=== PATIENT | female | born 1935 | race Caucasian/White ===

== ENCOUNTER 2017-10-09 20:08 | Inpatient (IN) | payer MEDICARE, OTHER ==
[~2017-10-09] VITALS: Ht 149.9 cm; Wt 55.3 kg
[~2017-10-09 20:08] MED LIST: CALAN SR240 MG PO; CARDURA4 MG PO; CETIRIZINE HCL5 MG PO; FLAGYL 500500 MG/100 PO; FLAGYL500 MG PO; IMODIUM2 MG PO; NAPROSYN500 MG PO; NORCO 5/325 TAB1 TA1 PO; PEPCID40 MG PO; PREMARIN0.625 MG PO; QUESTRAN PACK4 G/PKT PO; RESTORIL15 MG PO; TRANXENE T-TA3.75 MG PO
[2017-10-09 20:26] LABS: BASOPHILS 0.2 % (0-2); EOSINOPHILS 0 % (0-7); HEMATOCRIT 34.5 % (36.0-48.0); HEMOGLOBIN 11.3 g/dL (12-16); IMMATURE GRANULOCYTES 0.2 % (0-5); LYMPHOCYTES 8.6 % (15-50); MCH 33.5 pg (26.0-34.0); MCHC 32.8 g/dL (31.0-37.0); MCV 102.4 fL (80.0-100.0); MEAN PLATELET VOLUME 9.3 fL (7.4-10.4); MONOCYTES 11.3 % (2-11); NEUTROPHILS 79.7 % (40-80); RBC 3.37 10x6/uL (4.00-5.40); RDW 12.3 % (11.5-14.5); WBC 9.5 10x3/uL (4.8-10.8)
[2017-10-09 20:37] LABS: PLATELET COUNT 198 10x3/uL (130-400)
[2017-10-09 20:40] LABS: ALBUMIN 3.2 g/dL (3.4-5.0); ANION GAP 19.1 mmol/L (8-16); BILIRUBIN - TOTAL 0.19 mg/dL (0.2-1.3); CARBON DIOXIDE 22.5 mmol/L (21.0-32.0); CREATININE - SERUM 1.3 mg/dL (0.6-1.3); POTASSIUM - SERUM 4.6 mmol/L (3.5-5.1); PROTEIN - SERUM 7.6 g/dL (6.4-8.2)
[2017-10-09 21:42] LABS: APPEARANCE TURBID (CLEAR); BILIRUBIN NEGATIVE (NEGATIVE); COLOR YELLOW (YELLOW); GLUCOSE NEGATIVE (NEGATIVE); KETONE SMALL mg/dL (NEGATIVE); NITRITE NEGATIVE (NEGATIVE); PROTEIN 1+ mg/dL (NEGATIVE); UROBILINOGEN NORMAL (NORMAL)
[2017-10-09 21:43] LABS: BACTERIA MANY /hpf (NONE SEEN); EPITHELIAL CELLS 0-5 /hpf (0-5); RED CELLS - URINE 0-5 /hpf (0-5); WHITE CELLS - URINE >50 /hpf (0-5)
[2017-10-10] VITALS (7 sets, daily range): BP systolic 137–171; BP diastolic 60–89; Ht 149.9 cm; Wt 55.3 kg
[2017-10-10] MEDS ORDERED: NASACORT10.8 ML NASAL (01:38)
[2017-10-10] MEDS ORDERED: ANASTROZOLE1 MG PO (01:39)
[2017-10-10] MEDS ORDERED: NEURONTIN 300300 MG PO (01:39)
[2017-10-10] MEDS ORDERED: REMERON15 MG PO (01:39)
[2017-10-10] MEDS ORDERED: ZITHROMAX250 MG PO (01:40)
--- NOTE | 2017-10-10 08:00 | NUR ---
INTRODUCED MYSELF TO PT PRIMARY RN FOR TODAYS SHIFT. SHIFT ASSESSMENT COMPLETED PT CURRENTLY WEARING BIPAP BUT IS RESPONSIVE. NO CURRENT NEEDS, WILL OBTAIN ORDERS IF BIPAP NEEDED OR NOT. BED IN LOWEST, SIDE RAILS X2 AND BUILT IN BED ALARM ON.
--- NOTE | 2017-10-10 09:06 | NUR ---
SPOKE WITH DAUGHTER GRANT AND PT CURRENTLY FULL CODE.
--- NOTE | 2017-10-10 09:30 | NUR ---
MORNING MEDICATIONS HELD R/T UNSURE ABOUT PT SWALLOWING SAFELY. LUNGS ARE VERY CRACKLING/CONGESTED THROUGHOUT ALL LOBES. PT IS ALERT AND ORIENTED BUT VERY QUIET UNLESS ASKED QUESTIONS. REMOVED BIPAP AND PLACED PT ON NC@4L WILL CONTINUE TO WATCH O2 AND REPLACE BIPAP IF NEEDED. CURRENT PULS OX IS 99% PT HAS MADISON DRAINING TO GRAVITY OFF R.SIDE OF BED YELLOW CLOUDY IN COLOR. INITIATED PTS IVPB INFUSING VIA R.HAND PIV WITH DSRG CDI AND SWAB DISTRIBUTION OPERATIONS MANAGER IN USE. PTS MOUTH IS DRY SO I PROVIDED ORAL CARE, WAITING ON SWALLOW EVAL TO SEE IF SHE CAN SAFELY SWALLOW OR NOT. PT VERBALIZED UNDERSTANDING AND DENIES ANY CURRENT PAIN OR NEEDS. WILL CPOC.
--- NOTE | 2017-10-10 14:22 | NUR ---
AT BEDSIDE ASSESSING PT. PT RESPONDING AND ANSWERING QUESTIONS WITHOUT ANY DEFICITS NOTED. CALLED SPEECH AND THEY WILL COME DO SWALLOW EVAL SHORTLY. NO CURRENT NEEDS AT THIS TIME. CL IN REACH, BED IN LOWEST, SIDE RAILS X2 AND BUILT IN BED ALARM ON. WILL CPOC.
--- NOTE | 2017-10-10 15:19 | NUR ---
SCDS APPLIED TO PT BILAT AND TEACHING PROVIDED. PT RESTING QUIETLY IN BED AND DENIES ANY CURRENT PAIN OR NEEDS. CL IN REACH. WILL CPOC.
--- NOTE | 2017-10-10 17:33 | NUR ---
PT BECOMING ANXIOUS AND TRYING TO CLIMB OOB AND STATING "I HAVE TO GO, IM NOT DYING" DAUGHTER AT BEDSIDE AND ATTEMPTING TO CALM PT DOWN. PAGED AND HE STATES WE CAN RESTART HER HOME MED FOR ANXIETY. ASSISTED PT BACK IN BED AND REPOSITIONED FOR COMFORT. WILL CTM.
--- NOTE | 2017-10-10 18:44 | NUR ---
PROVIDED PT WITH ANXIETY MED AND PT IS STILL BEING VERY ANXIOUS. REFUSING TO LET GO OF CNAS HAND, PT TOLD ME TO LEAN IN TO HEAR HER BETTER AND THEN SHE PULLED MY PONYTAIL AND WOULDNT LET GO. PT BEING NONCONGRUENT WITH SITUATION SHE WILL RANDOMLY LAUGH OUT AND THEN SAY "AWH YOU GUYS ARE SO CUTE COME HERE" DAUGHTER AT BEDSIDE HOWEVER PT TOLD HER TO "JUST SHUTUP AND MIND YOUR BUSINESS" WILL PAGE AGAIN
--- NOTE | 2017-10-10 18:51 | NUR ---
ONE TIME DOSE OF HALDOL ORDERED, WILL TRY AND SEE IF IT HELPS. PT PULLED OUT HER R.ARM PIV AND BLAMED IT ON THE LIQUEFIED NATURAL GAS PLANT OPERATOR. NEW 20 GUAGE PIV INSERTED INTO L.FA X1 STICK, DRSG ADHERED TO SKIN AND SWAB CAPS IN USE. WILL CPOC.
--- NOTE | 2017-10-10 20:03 | NUR ---
PT IS RESTING IN BED WITH EYES OPEN. ALERT, BUT CONFUSED TO PLACE, TIME AND SITUATION. PT IS CONTINUOUSLY ATTEMPTING TO GET OUT OF BED, REMOVING SCD'S, ETC. SHE STATES: " I JUST HAVE TO GET UP AND GO." SHE DOES NOT FOLLOW ANY COMMANDS. PT IS CADDO. MADISON CATH IS PATENT AND DRAINING TO A GRAVITY BAG. REFUSING TO WEAR O2. SCD'S ARE ON AT THIS TIME. LEFT FOREARM SALINE LOCK NOTED. SR'S ARE UP X 3 IN BED. CALL LIGHT AND BEDSIDE TABLE ARE WITHIN EASY REACH. BED ALARM IS ON.
--- NOTE | 2017-10-10 21:57 | NUR ---
PT IS RESTING IN BED WITH EYES CLOSED. AWOKE EASILY FOR MEDS. NO SWALLOW PROBLEMS NOTED. PT DRIFTED BACK TO SLEEP QUICKLY.
--- NOTE | 2017-10-11 02:04 | NUR ---
PT RESTING QUIETLY IN BED WITH EYES CLOSED. RESPS ARE EVEN AND UNLABORED. NO ACUTE DISTRESS NOTED.
--- NOTE | 2017-10-11 02:33 | NUR ---
PT RESTING IN BED WITH EYES OPEN. PT FIDGETTY. PULLING BLANKETS OFF AND ON. ROLLING FROM ONE SIDE OF THE BED TO THE OTHER. NO ACUTE DISTRESS NOTED. PT NOT TRYING TO GET OUT OF BED. WILL MONITOR CLOSELY.
[2017-10-11 04:05] VITALS: BP 146/90
--- NOTE | 2017-10-11 04:48 | NUR ---
PT RESTING IN BED WITH EYES OPEN. DOZING ON AND OFF. NO ACUTE DISTRESS NOTED.
--- NOTE | 2017-10-11 05:30 | NUR ---
HARDWARE INSTALLER AT BEDSIDE TO OBTAIN VITALS, WILL CONTINUE WITH PLAN OF CARE. CALL LIGHT IN REACH.
[2017-10-11 06:17] LABS: BASOPHILS 0.1 % (0-2); EOSINOPHILS 0 % (0-7); HEMOGLOBIN 11.2 g/dL (12-16); IMMATURE GRANULOCYTES 0.3 % (0-5); LYMPHOCYTES 5.8 % (15-50); MCH 33.5 pg (26.0-34.0); MCHC 32.9 g/dL (31.0-37.0); MCV 101.8 fL (80.0-100.0); MEAN PLATELET VOLUME 9.5 fL (7.4-10.4); MONOCYTES 6.9 % (2-11); NEUTROPHILS 86.9 % (40-80); PLATELET COUNT 204 10x3/uL (130-400); RBC 3.34 10x6/uL (4.00-5.40); RDW 12.4 % (11.5-14.5)
[2017-10-11 06:26] LABS: ANION GAP 18.3 mmol/L (8-16); CALCIUM 9.3 mg/dL (8.5-10.1); CARBON DIOXIDE 23.6 mmol/L (21.0-32.0); CREATININE - SERUM 0.8 mg/dL (0.6-1.3); POTASSIUM - SERUM 3.9 mmol/L (3.5-5.1)
[2017-10-11 06:28] LABS: WBC 14.7 10x3/uL (4.8-10.8)
--- NOTE | 2017-10-11 07:45 | NUR ---
INTRODUCED MYSELF TO PT PRIMARY RN FOR TODAYS SHIFT. PT ALERT BUT DISORIENTED TO SITUATION AND PT OFTEN LAUGHS RANDOMLY WHEN DIRECTIONS OR QUESTIONS ARE ASKED, NON-CONGRUENT WITH SITUATION. PT RESTING QUIETLY IN BED WITH NC @4L IN PLACE RR NONLABORED BUT PT STILL HAS A VERY WET SOUNDING COUGH BUT STATES SHE IS UNABLE TO COUGH ANY SPUTUM UP. MADISON DRAINING TO GRAVITY OFF R.SIDE OF BED AND STAT LOCK SECURED TO R.INNER THIGH. NO CURRENT NEEDS AT THIS TIME. WILL CPOC. BUILT IN BED ALARM ON, BED IN LOWEST, SIDE TAILS X2.
[2017-10-11 08:55] VITALS: BP 131/75
--- NOTE | 2017-10-11 12:00 | NUR ---
REPOSITIONED PT UP IN BED SO SHE CAN EAT LUNCH. PT VOICED THANKS AND THEN STARTED TO "CHUCKLE" ASKED HER WHAT WAS FUNNY AND PT JUST SMILED. PT IS A&O BUT DISORIENTED WITH FEELINGS AND SITUATION. PT BEING VERY CALM AND COOPERATIVE AT THIS TIME AND HAS BEEN SO FAR TODAY. NO CURRENT NEEDS. WILL CPOC. BED IN LOWEST, SIDE RAILS X2 AND WILY ALARM IN PLACE.
[2017-10-11 12:05] VITALS: BP 124/72
[2017-10-11 15:49] VITALS: BP 124/81
--- NOTE | 2017-10-11 19:26 | NUR ---
PT ASLEEP. REPIRATIONS EVEN AND UNLABORED. 5L OF O2 NC. NO S/S OF DISTRESS. BED LOW AND CALL LIGHT IN REACH
[2017-10-11 22:16] VITALS: BP 132/87
--- NOTE | 2017-10-12 00:02 | NUR ---
PT NOW ON OXYMIXER 15L O2 @ 90%. PT IRREGULAR AND LABORED BREATHING. RESPRITORY IN ROOM, PT GURGLING AND APPEARS TO BE IN FLUID OVERLOAD. PAGING DR CORONEL FOR LASIX ORDER. WILL CPOC
--- NOTE | 2017-10-12 00:12 | NUR ---
SPOKE WITH DR. GUERIN. A ONE TIME DOSE OF 40MG NOW THAN A Q12H SCHEDULED DOSE AFTER THAT. PT RECEIVING LASIX NOW. WILL CPOC
[2017-10-12 01:30] VITALS: BP 120/68
--- NOTE | 2017-10-12 02:55 | NUR ---
PT ASLEEP ON RIGHT SIDE. HAVE ONLY HAD TO REPLACE OXYMIZER ONCE. PT BREATHING NOT LABORED AT THIS TIME. NO S/S OF DISTRESS. WILL CPOC
--- NOTE | 2017-10-12 03:37 | NUR ---
PT RECEIVING BATH. PT HAD A SMALL INCONT BM. REPOSITIONING PT. NEW LINEN AND GOWN. PT ON 15L OXYMIZER, BREATHING UNLABORED AND REGULAR. NO S/S OF DISTRESS. WILL CPOC
[2017-10-12 04:53] VITALS: BP 125/82
--- NOTE | 2017-10-12 07:45 | NUR ---
INTRODUCED MYSELF TO PT PRIMARY RN FOR TODAYS SHIFT. PT IS VERY LETHARGIC AND BARELY STAYING AWAKE BUT OFTEN PULLING AT LINES/MADISON AND TAKING HER OXYGEN OFF. PTS LUNGS SOUND HORRIBLE AND HAVE CRACKLES AND CONGESTION THROUGHOUT ALL LOBES. WILL NOTIFY AND CPOC.
[2017-10-12 08:26] VITALS: BP 129/81
--- NOTE | 2017-10-12 11:38 | NUR ---
RESPIRATORY NOTIFIED ME OF PT BEING MORE LETHARGIC THAN EARLIER AND RESTLESS PULLING HER OXYGEN OFF. PULSE OX DOWN TO 78%, APPLIED BIPAP AND PAGED WILL OBTAIN ABGS ORDERED AND CONTINUE TO MONITER HER CLOSELY AND TRY TO KEEP HER HANDS OUT OF HER MASK.
--- NOTE | 2017-10-12 11:45 | NUR ---
JUST CALLED AND CONFIRMED TALKING TO DAUGHTER AND DISCUSSED CODE AND CURRENT SITUATION AND DAUGHTER STATES HER MOTHER DOES HAVE A LIVING WILL AND WOULD LIKE TO BE A DNR.
[2017-10-12 12:18] VITALS: BP 119/73
--- NOTE | 2017-10-12 13:44 | NUR ---
Nutrition follow-up: Diet: puree wth thin liquids PO intake ~40% of last 3 meals labs reviewed Wt: 121# Pt is not feeling too well at this time. Will continue to provide food choices and honor food preferences within diet restrictions. RDN following.
--- NOTE | 2017-10-12 14:31 | NUR ---
PTS DAUGHTER GRANT HERE TO VISIT HER. PULLED HER UP IN BED AND REMOVED BIPAP AND PLACE OXYMIZER @15L BACK IN PLACE. PULSE OX CURRENTLY 92% PT WILL ANSWER QUESTIONS WITH A MOAN AND GROAN BUT WILL NOT OPEN HER EYES OR FOLLOW COMMANDS. ENCOURAGED DAUGHTER TO CONTINUE VISITING AND TALK TO HER. NO FURTHER NEEDS AT THIS TIME. WILL CPOC.
--- NOTE | 2017-10-12 16:01 | NUR ---
PLACED BIPAP BACK ON PT SATS DECREASED TO 88% PT DID AROUSE WITH HER DAUGHTER AT BEDSIDE AND TRIED TO EAT A LITTLE. NOW PT RESTING AGAIN WITH EYES CLOSED BUT SHE WILL RESPOND BY MOANS/GROANS BUT NO WORDS. WILL CTM CLOSELY.
[2017-10-12 16:12] VITALS: BP 103/59
--- NOTE | 2017-10-12 18:13 | NUR ---
PROVIDED PT WITH LASIX ORDERED. PT IS RESTING QUIETLY IN BED WITH EYES CLOSED AND WOULDNT RESPOND TO ME VERBALLY JUST PULLED AWAY BUT WAS COOPERATIVE. RR VERY SHALLOW AT 20 BREATHS PER MINUTE. OXYMIZER @15L IN PLACE AND PULSE OX 96% EMPTIED MADISON OF 525ML CLEAR YELLOW URINE. PT DID NOT EAT TODAY EXCEPT 4 BITES OF SOUP PT ALSO DIDNT DRINK APPEARS TO HAVE FAILURE TO THRIVE BEEN LETHARGIC ALL DAY. DAUGHTER HAS LEFT FOR THE NIGHT BUT AWARE OF SITUATION AND CONDITION. NO FURTHER NEEDS NOTED AT THIS TIME. CL IN REACH, BED IN LOWEST, SIDE RAILS X2 AND BUILT IN BED ALARM ON. WILL CPOC.
--- NOTE | 2017-10-12 19:45 | NUR ---
PT LETHARGIC. ON 15L OXYMIZER. FAMILY IN ROOM. PT AROUSES TO PHYSICAL STIMULI. DOES NOT STAY AWAKE FOR LONG. PT HAS NO S/S OF DISTRESS AT THIS TIME. BREATHING IS EVEN AND UNLABORED. BED LOW AND CALL LIGHT IN REACH. WILL CPOC
[2017-10-12 20:00] VITALS: BP 115/74
[2017-10-13] VITALS: BP 117/69
--- NOTE | 2017-10-13 03:48 | NUR ---
PT ASLEEP. BED LOW AND CALL LIGHT IN REACH. 15L ON OXYMIZER PT BREATHING HAS A RRR AT THIS TIME. FAMILY MEMBER COMING BACK TO STAY THE NIGHT. LAST O2 WAS 95% NO S/S OF DISTRESS. WILL CPOC
[2017-10-13 04:00] VITALS: BP 126/80
[2017-10-13 05:07] LABS: BASOPHILS 0.1 % (0-2); EOSINOPHILS 0 % (0-7); HEMATOCRIT 31.7 % (36.0-48.0); HEMOGLOBIN 10.6 g/dL (12-16); IMMATURE GRANULOCYTES 0.5 % (0-5); LYMPHOCYTES 12.1 % (15-50); MCH 32.9 pg (26.0-34.0); MCHC 33.4 g/dL (31.0-37.0); MEAN PLATELET VOLUME 9.6 fL (7.4-10.4); MONOCYTES 12.3 % (2-11); RBC 3.22 10x6/uL (4.00-5.40); RDW 12.7 % (11.5-14.5); WBC 13.3 10x3/uL (4.8-10.8)
[2017-10-13 05:18] LABS: MCV 98.4 fL (80.0-100.0); PLATELET COUNT 248 10x3/uL (130-400)
[2017-10-13 05:35] LABS: CALCIUM 8.8 mg/dL (8.5-10.1); CARBON DIOXIDE 25.3 mmol/L (21.0-32.0)
[2017-10-13 05:38] LABS: CREATININE - SERUM 1.6 mg/dL (0.6-1.3)
[2017-10-13 05:40] LABS: ANION GAP 17.5 mmol/L (8-16); POTASSIUM - SERUM 2.8 mmol/L (3.5-5.1)
[2017-10-13 07:48] VITALS: BP 104/56
--- NOTE | 2017-10-13 08:30 | NUR ---
AM ROUNDS - PT IN BED AND APPEARS TO BE SLEEPING AT THIS TIME WITH EQUAL AND NON LABORED BREATHING. PT IS ON 15L O2 VIA OXIMIZER. IV TO LEFT FA, SL. RFOLEY. SCD ARE ON AT THIS TIME. BED AT LOWEST POSITION. CALL LOCKHART IN USE/REACH. SIDE RAILS UP X2. WILL CONTINEU TO MONITOR
--- NOTE | 2017-10-13 09:39 | NUR ---
PER PHARMACY, VANC AND ZOSYN NOT COMPATABLE. K+ AND VAN ARE COMPATABLE. ZOSYN AND K+ ARE COMPATABLE. MORNING K+ AND VANC ARE STILL RUNNING. UNABLE TO HAND 0900 VANC OR NEXT K+ RIDER AT THIS TIME.
[2017-10-13 12:03] VITALS: BP 128/73
[2017-10-13 16:24] VITALS: BP 117/69
--- NOTE | 2017-10-13 19:20 | NUR ---
PT ASLEEP. RESPIRATIONS EVEN AND UNLABORED. NO S/S OF DISTRESS. BED LOW AND CALL LIGHT IN REACH. WILL CPOC
--- NOTE | 2017-10-13 19:48 | NUR ---
PT AT 98% ON 15L OXYMIZER. RESPRITORY DECREASED TO 13L OXY. WILL CONTINUE TO MONITOR
[2017-10-13 20:00] VITALS: BP 113/71
--- NOTE | 2017-10-13 21:16 | NUR ---
PT C/O DIZZINESS. SCHEDULED MEDS GIVEN. PT IS AWAKE. AND RESPONSIVE. PT DENIES ANY NEEDS AT THIS TIMES. FAMILY IN ROOM, NO S/S OF DISTRESS. WILL CPOC
--- NOTE | 2017-10-14 00:54 | NUR ---
PT NOW ON 10L OXYMIZER AT 99%. PT ASLEEP SIDEWAYS IN THE BED. REPOSITIONED PT. FAMILY AT BEDSIDE. PT WENT RIGHT BACK TO SLEEP. RESPIRATIONS EVEN AND UNLABORED. PT HAS NO S/S OF DISTRESS. WILL CPOC
[2017-10-14 01:15] VITALS: BP 118/71
[2017-10-14 05:15] LABS: BASOPHILS 0.1 % (0-2); EOSINOPHILS 0 % (0-7); HEMATOCRIT 31.5 % (36.0-48.0); HEMOGLOBIN 10.3 g/dL (12-16); IMMATURE GRANULOCYTES 0.8 % (0-5); LYMPHOCYTES 10.5 % (15-50); MCH 32.9 pg (26.0-34.0); MCHC 32.7 g/dL (31.0-37.0); MEAN PLATELET VOLUME 10.2 fL (7.4-10.4); MONOCYTES 13.2 % (2-11); NEUTROPHILS 75.4 % (40-80); PLATELET COUNT 297 10x3/uL (130-400); RBC 3.13 10x6/uL (4.00-5.40); RDW 12.9 % (11.5-14.5); WBC 14.4 10x3/uL (4.8-10.8)
[2017-10-14 05:19] VITALS: BP 118/72
[2017-10-14 05:25] LABS: MCV 100.6 fL (80.0-100.0)
[2017-10-14 05:56] LABS: ANION GAP 16.3 mmol/L (8-16); CALCIUM 8.6 mg/dL (8.5-10.1); CARBON DIOXIDE 25.3 mmol/L (21.0-32.0); CREATININE - SERUM 1.8 mg/dL (0.6-1.3); POTASSIUM - SERUM 3.6 mmol/L (3.5-5.1); VANCOMYCIN - RANDOM 12.2 ug/mL (10.0-20.0)
[2017-10-14 07:42] VITALS: BP 116/67
--- NOTE | 2017-10-14 09:02 | NUR ---
AM ROUNDS - PT IN BED AND AWAKE AT THIS TIME. FAMILY IS AT BEDSIDE. LOS. SCD ON. PT ON 10L O2 VIA HIGH FLOW. PT IS A DNR. BED AT LOWEST POSITION. CALL LOCKHART IN USE/REACH. SIDE RAILS UP X2. WILL CONTINUE TO MONITOR
--- NOTE | 2017-10-14 09:52 | NUR ---
VANCOMYCIN RANDOM WAS 12.2 ROUGHLY 17 HOURS AFTER THE FIRST DOSE. GIVEN PATIENTS AGE, SIZE AND RENAL FUNCTION WE WILL DO DAILY RANDOMS TO TRY TO KEEP HER LEVELS IN RANGE.
[2017-10-14 11:37] VITALS: BP 140/66
[2017-10-14 15:48] VITALS: BP 102/62
--- NOTE | 2017-10-14 18:16 | NUR ---
PT RESTING IN BED. FEMAL FAMILY MEMBER AT BEDSIDE. WILL CONTINUE TO MONIOTR
--- NOTE | 2017-10-14 19:43 | NUR ---
UNABLE TO OBTAIN B/P OR SAT. PT HAS WEAK IRREGULAR HEART TONES AND HAS BECOME UNRESPONSIVE. BREATHING AT 6 BREATHS PER MIN. PT IS A DNR AND THE DAUGHTER IS AT THE BEDSIDE. CALL TO DR BRANDON BUENO INSTRUMENT AND CONTROL SERVICE PERSON. AWAITING RETURN CALL. DAUGHTER REPEATS AT THE BEDSIDE, SHE DOES NOT WANT CPR OF INTUBATION AND WANTS TO CONT PT TO BE A DNR.
--- NOTE | 2017-10-14 19:47 | NUR ---
PT NOW WITHOUT RESPIRATION OR HEART TONES. DR TAYLOR RETURNS CALL. INFORMED OF PT CONDITION. STATES HE WILL SPEAK WITH ER PHYSICIAN AND HAVE ER PHYSICIAN COME TO PRONOUNCE.
--- NOTE | 2017-10-14 20:08 | NUR ---
DR PRIEST HERE, PRONIOUNCES AT THIS TIME.
--- NOTE | 2017-10-14 20:09 | NUR ---
DR PRIEST HERE TO PRONOUNCE. RECORD OF TO BE SIGNED.
--- NOTE | 2017-10-14 20:14 | NUR ---
CALL TO [facility], REPORTED PT . SPOKE WITH NEVIN SANDERS. STATES PT IS NOT A CANDIDATE FOR DONATION AND RULED OUT D/T AGE AT THIS TIME. REFERENCE NUMBER [id number]. INFORMATION ALSO PLACED ON RECORD OF .
--- NOTE | 2017-10-14 21:10 | NUR ---
[facility] NOTIFIED AT THIS TIME TO COME AND CHECK AND TRANSFER BEADER PT.
--- NOTE | 2017-10-14 21:57 | NUR ---
FAMILY LEAVES PT'S BEDSIDE. ALL CONTACT INFORMATION RECEIVED FROM DAUGHTER BEFORE DEPARTING. AWAITING HOME TO ARRIVE.
--- NOTE | 2017-10-14 22:52 | NUR ---
PT LEAVES FACILITY VIA STRETCHER WITH PLANT CARE WORKER AT THIS TIME. RECORD OF SIGNED
--- NOTE | 2017-10-24 11:38 | CN ---
PATIENT NAME:NATE POLK MEDICAL RECORD: [id number] : 31 LOCATION:[facility] D.[id number] ADMIT DATE: 10/09/17 ACCOUNT: [id number] CONSULTING PHYSICIAN: KEM CARRNIGTON MD REFERRING PHYSICIAN: SONDRA CORONEL MD DATE OF CONSULTATION: 10/10/2017 REQUESTING PHYSICIAN: Sondra Coronel MD REASON FOR CONSULTATION: Possible aspiration pneumonia. HISTORY OF PRESENT ILLNESS: Ms. Polk is an 82-year-old female who was found by her daughter on the floor unresponsive. Her lips were blue. Also, the daughter witnessed that she was vomiting and her mouth was full and apparently she may have aspirated. The patient was brought into the ER. She was put on the BiPAP last night, but now she is on nasal cannula and is awake and alert, but still very confused. She is a very poor historian. PAST MEDICAL HISTORY: 1. History of CA of the breast. 2. History of panic attacks. PAST SURGICAL HISTORY: 1. She had ENT surgery for deviated septum. 2. She had a breast cyst removed as well as mastectomy. ALLERGIES: There are no known drug allergies. MEDICATIONS: Her present medication on Apptera is reviewed. PERSONAL AND SOCIAL HISTORY: The patient is nonsmoker, nondrinker. FAMILY HISTORY: Significant for cardiovascular disease and cancer. PHYSICAL EXAMINATION: GENERAL: The patient is now lying comfortably on bed. She is not in acute distress. VITAL SIGNS: The blood pressure 141/89, pulse is 92, respirations 16, temperature 96.4, SpO2 is 94% on room air. HEENT: Conjunctivae pink. Sclerae nonicteric. NECK: Neck is supple, no JVD. CHEST: The chest excursion is minimal on both sides. There are basal crackles. No wheezing. HEART: Rhythm regular, normal sound, no murmur. ABDOMEN: Abdomen is soft, bowel sounds present. No hepatosplenomegaly. RECTAL: Examination was deferred. EXTREMITIES: No cyanosis, no clubbing, no pedal edema. SKIN: The skin is warm, normal turgor. CENTRAL NERVOUS SYSTEM: The patient is now awake and alert. She is a bit confused. There is no obvious cranial nerve abnormality. RADIOLOGY: Chest radiograph: There is no acute infiltrate, no consolidation. OTHER LABORATORY DATA: CBC: WBC is 9.5, hemoglobin 11.3, hematocrit 34.5, the platelet count 198 and the neutrophil is 79.7%. Chemistry: Sodium is 138, CONSULT REPORT [id number] NATE POLK potassium 4.6, BUN is 25, creatinine 1.3. AST is 101. Serum ammonia level was 14. IMPRESSION: 1. Aspiration pneumonitis. 2. Acute hypoxic respiratory failure. 3. Nausea and vomiting, the etiology not clear. 4. Mental status changes, improved. Possible metabolic encephalopathy, rule out infectious process. 5. UTI. RECOMMENDATION: 1. Continue Zosyn. 2. Supplemental oxygen as required. 3. BiPAP as required. 4. Follow up labs and chest radiograph in the morning. Dr. Coronel, thank you for involving me in the care of Ms. Polk. TRANSINT:[id number] Voice Confirmation ID: [id number] DOCUMENT ID: [id number] KEM CARRINGTON MD at 1138 CC: SONDRA CORONEL MD [id number] DICTATION DATE: 10/10/17 1430 TRANSACTIONAL ATTORNEY: 10/10/17 1520 DIS IN 10/14/17 [facility] [address] [place] [address]
== END 2017-10-14 22:53 | DRG 177 ==
LOC: D.ER 20:08 → D.M2 23:14
PROVIDERS: Emergency Medicine; ADMIT Family Medicine
PROC: 0T9B70Z Drainage of Bladder with Drainage Device, Via Natural or Artificial Opening (ICD-10-PCS; principal; 2017-10-09)
PROC: 5A09357 Assistance with Respiratory Ventilation, Less than 24 Consecutive Hours, Continuous Positive Airway Pressure (ICD-10-PCS; 2017-10-09)
DX: J69.0 Pneumonitis due to inhalation of food and vomit (principal); J96.01 Acute respiratory failure with hypoxia; G93.49 Other encephalopathy; G93.41 Metabolic encephalopathy; N39.0 Urinary tract infection, site not specified; J98.11 Atelectasis; Z85.3 Personal history of malignant neoplasm of breast; Z66 Do not resuscitate; D64.9 Anemia, unspecified